=== PATIENT | male | born 1985 | race African-American/Black ===

== ENCOUNTER 2024-12-24 18:53 | Emergency (ER) | payer OTHER, SELFPAY ==
[2024-12-24 18:57] VITALS: BP 153/104
[2024-12-24] MEDS: MOTRIN 600 MG PO (20:13)
[2024-12-24 22:03] VITALS: BP 135/91
--- NOTE | 2024-12-29 09:46 | ED.GENMED ---
History of Present Illness
General
Chief Complaint: Musculo-Skeletal Complaint
Source: patient
Exam Limitations: none
Time Seen by Provider: 12/24/24 19:37
Nursing documentation reviewed up to this point in time: agreed with
History of Present Illness
History of Present Illness:
Patient is a 39 yr old male who presents to the ER complaining of right ankle discomfort and swelling for the past 2 days. He denies any injury. He does report it is sore when he bears weight. He denies any actual redness/fever/chills.
Patient denies any other joint pain body aches rash.
No history of gout.
Past History
Past History
ED Past Medical History: None
ED Past Surgical History: None
Social History
Tobacco: Non-smoker
Review of Systems
Review of Systems
Allergies reviewed?: Yes
All Other Systems: ROS reviewed and negative except as documented in HPI and ROS
Constitutional: Reports no symptoms; Denies fever, fatigue or chills
Musculoskeletal: Reports other (Right ankle swelling discomfort)
Skin: Reports no symptoms
Neurological: Reports no symptoms
Psychiatric: Reports no symptoms
Phy Exam
General Physical Exam
General Presentation: no apparent distress
General Skin: warm and dry
General Habitus: normal
General Mental: alert
General Hydration: appears well hydrated
Neurological Exam
Neurological Exam: alert and oriented x3
Musculoskeletal Exam
Musculoskeletal Exam: other (Right lower extremity strong pulses mild swellin/tenderness to the right lateral ankle with no redness very minimally tender good range of motion; no calf tenderness or swelling )
Skin Exam
Skin Exam: normal color and warm/dry
Course
Orders/Labs/Results
Orders:
Orders
12/24/24 20:08
Ibuprofen [Motrin] 600 mg PO NOW STA
Ankle, Right 3 view CR [CR Ankle - Right Min 3 Views *] Urgent
Comment:
Reason For Exam: pain
Foot, Right 3 View [CR Foot - Right Min 3 Views] Urgent
Comment:
Reason For Exam: pain
12/24/24 20:12
Ibuprofen [Motrin] 600 mg .ROUTE .STK-MED ONE
Vital Signs
Initial and Last Documented VS:
Initial Vital Signs
Temp Pulse Resp BP Pulse Ox
99.5 F 98 18 153/104 99
12/24/24 18:57 12/24/24 18:57 12/24/24 18:57 12/24/24 18:57 12/24/24 18:57
Last Documented Vital Signs
Temp Pulse Resp BP Pulse Ox
99.5 F 74 18 135/91 98
12/24/24 18:57 12/24/24 22:03 12/24/24 22:03 12/24/24 22:03 12/24/24 22:03
MDM/Problems Addressed
Differential Diagnosis Includes:
Sprain tendinitis less likely septic arthritis no calf swelling consistent for DVT
MDM/Problems Addressed:
Mild swelling to the ankle with no obvious findings on x-ray; patient is mildly tender lateral foot ankle with no injury no fever chills exam not consistent with septic joint however discussed close outpatient with ortho NSAIDs/will give crutches
for support discussed to return if any worsening of symptoms
*Critical Care Note
Total Time (30-74mins, 75-104mins- exclusive of procedures): Not Applicable
ED Attending Note
-
Portions of this chart may have been created with voice recognition software.� Occasional wrong word or��sound alike� substitutions may have occurred due to the inherent limitations of voice recognition software.
Discharge Plan
Departure
Patient Disposition: Home (Routine Discharge)
Date of Disposition: 12/24/24
Time of Disposition: 22:00
Patient with high blood pressure during this ER visit?: Yes
Condition: Fair
Discharge Problem:
Foot and ankle pain
Instructions: Muscle and Bone Pain (DC)
Prescriptions:
No Action
cephalexin [Keflex] 500 MG capsule
500 mg PO QID Qty: 28 0RF
bacitracin 28.4 GM ointment
15 gm topical BID 7 Days 0RF
Referrals:
Shani Warren PA-C [Family Provider] -
Joel Osorio MD [Active] -
Activity Restrictions/Additional Instructions:
As discussed keep elevated as much as possible; wear Jabari wrap throughout the day but remove at night while sleeping. 600 mg of ibuprofen every 8 hours. You May alternate with Tylenol for pain. Please call orthopedics tomorrow for follow-up in
the next 1 to 2 days. Use crutches for ambulation.
Return if any worsening of symptoms include increased pain redness fever chills or any further concerns.
Interventions
Interventions:
*Risk Screen - Suicide Last Done: 12/24/24 18:57
*General Assessment Last Done: 12/24/24 18:57
*Neglect/Abuse Screening Last Done: 12/24/24 18:57
*ED- Fall Risk Assessment Last Done: 12/24/24 22:13
*ED COVID-19 Vaccine History Last Done: 12/24/24 18:57
*Nursing Disposition Last Done: 12/24/24 22:13
ED-Musculoskeletal Assessment Last Done: 12/24/24 20:17
Discharge Date and Time
Discharge Date/Time: 12/24/24 22:13
Print Language: MOROCCAN
== END 2024-12-24 22:13 | disposition home or self-care (01) ==
LOC: EMR 18:53
PROVIDERS: EMERGENCY PHYSICIAN Emergency Medicine; FAMILY PHYSICIAN Physician Assistant
DX: M25.571 Pain in right ankle and joints of right foot (principal)
CPT/HCPCS: 99283; 73610; 73630